=== PATIENT | female | born 1945 | race Caucasian/White ===

== ENCOUNTER → 2016-11-28 | Outpatient (CLI) | payer MEDICARE ==
[~2016-11-28] MED LIST: ALN10T PO; AMIT10TA6 PO; ARIMIDEX PO; CITA40TA19; LOSA100T16; METOPROLOL; ROSU10TA12; [UNRECOGNIZED DRUG - OTHER]
--- NOTE | 2016-11-28 17:08 | Diagnostic Imaging Report ---
Bilateral screening mammogram. The current study was also evaluated with a Computer Aided Detection (CAD) system. INDICATION: Screening. No current complaints stated on the questionnaire. COMPARISON: 11/27/2015. FINDINGS: The breasts are composed of heterogeneously dense parenchyma which may decrease mammographic sensitivity. Post therapeutic changes for previous medial right breast cancer seen with lumpectomy, scarring and surgical clip seen. A port projecting over the left axillary region is seen. Increasing calcifications in the upper-outer aspect of the right breast are seen favored to be benign. Stable calcifications in the left breast noted. IMPRESSION: Slightly increased likely benign calcifications in the upper-outer aspect of the right breast seen. Better evaluation with focal compression and magnification views recommended however. ACR BI-RADS Category 0: Incomplete. (Needs additional imaging evaluation). Result letter will be mailed to the patient. Note: At least 10% of breast cancer is not imaged by mammography. Dictated by: Dictated on workstation # [id number]
== END ==
LOC: RAD 09:18
PROVIDERS: ATTEND Internal Medicine Hematology & Oncology
DX: Z12.31 Encounter for screening mammogram for malignant neoplasm of breast (principal); R92.8 Other abnormal and inconclusive findings on diagnostic imaging of breast
CPT/HCPCS: 77067

== ENCOUNTER 2016-12-06 08:51 | Outpatient (RCR) | payer MEDICARE ==
[2016-12-06] MEDS ORDERED: ALTEPLASE 2 MG (CATHFLO) CANCER CENTER IV ONE (09:30)
[2016-12-06 10:52] LABS: BASOPHILS % (AUTO) 1 % (0-10); EOSINOPHILS # (AUTO) 0.2 10^3/uL (0.0-0.3); EOSINOPHILS % (AUTO) 2 % (0-10); LYMPHOCYTES # (AUTO) 1.4 X 10^3 (1.0-4.0); LYMPHOCYTES % (AUTO) 19 % (12-44); MEAN CORPUSCULAR HEMOGLOBIN 29 PG (25-34); MEAN CORPUSCULAR HGB CONC 33 G/DL (32-36); MEAN CORPUSCULAR VOLUME 90 FL (80-99); MONOCYTES # (AUTO) 0.7 X 10^3 (0.0-1.0); MONOCYTES % (AUTO) 9 % (0-12); NEUTROPHILS # (AUTO) 5.4 X 10^3 (1.8-7.8); NEUTROPHILS % (AUTO) 70 % (42-75); PLATELET COUNT 255 10^3/uL (130-400); RED BLOOD COUNT 4.66 10^6/uL (4.35-5.85); RED CELL DISTRIBUTION WIDTH 13.4 % (10.0-14.5); WHITE BLOOD COUNT 7.7 10^3/uL (4.3-11.0)
[2016-12-06 11:10] LABS: ALANINE AMINOTRANSFERASE 23 U/L (0-55); ALBUMIN 4.1 GM/DL (3.2-4.5); ANION GAP 13 MMOL/L (5-14); ASPARTATE AMINO TRANSFERASE 17 U/L (5-34); BILIRUBIN,TOTAL 0.5 MG/DL (0.1-1.0); BLOOD UREA NITROGEN 13 MG/DL (7-18); BUN/CREATININE RATIO 14 (0-20); CALCIUM 9.4 MG/DL (8.5-10.1); CARBON DIOXIDE 25 MMOL/L (21-32); CHLORIDE 102 MMOL/L (98-107); GFR ESTIMATED > 60; GLUCOSE 117 MG/DL (70-105); POTASSIUM 3.7 MMOL/L (3.6-5.0); SODIUM 140 MMOL/L (135-145); TOTAL PROTEIN 7.1 GM/DL (6.4-8.2)
== END 2017-03-06 | disposition home or self-care (01) ==
LOC: ONC 08:51
PROVIDERS: ATTEND Internal Medicine Hematology & Oncology
DX: Z08 Encounter for follow-up examination after completed treatment for malignant neoplasm (principal); Z85.3 Personal history of malignant neoplasm of breast; T82.9XXA Unspecified complication of cardiac and vascular prosthetic device, implant and graft, initial encounter; M81.0 Age-related osteoporosis without current pathological fracture; I12.9 Hypertensive chronic kidney disease with stage 1 through stage 4 chronic kidney disease, or unspecified chronic kidney disease; N18.3 Chronic kidney disease, stage 3 (moderate); E78.00 Pure hypercholesterolemia, unspecified; J45.909 Unspecified asthma, uncomplicated; Z92.21 Personal history of antineoplastic chemotherapy; Z92.3 Personal history of irradiation; Z79.899 Other long term (current) drug therapy
CPT/HCPCS: 36593; 80053; 85025

== ENCOUNTER → 2016-12-12 | Outpatient (CLI) | payer MEDICARE | DX: R92.8 Other abnormal and inconclusive findings on diagnostic imaging of breast (principal); C50.011 Malignant neoplasm of nipple and areola, right female breast ==

== ENCOUNTER → 2016-12-19 | Outpatient (CLI) | payer MEDICARE ==
--- NOTE | 2016-12-19 16:56 | Diagnostic Imaging Report ---
EXAMINATION: DEXA scan. INDICATION: Osteopenia. TECHNIQUE: Bone mineral density estimated based on dual energy radiography over the lumbar spine and femoral necks, was performed. FINDINGS: The lumbar spine T-score is -2.6. This is 4.6% increased density measurement compared to 11/18/13. T-score over the left femoral neck is -2 and on the right side is -1.6. IMPRESSION: Osteoporosis. Dictated by: Dictated on workstation # [id number]
== END ==
LOC: RAD 08:51
PROVIDERS: ATTEND Internal Medicine Hematology & Oncology
DX: M81.0 Age-related osteoporosis without current pathological fracture (principal)
CPT/HCPCS: 77080

== ENCOUNTER → 2017-06-18 | Outpatient (CLI) | payer MEDICARE ==
--- NOTE | 2017-06-18 14:43 | Diagnostic Imaging Report ---
EXAMINATION: Right breast diagnostic mammogram with tomography evaluation. The current study was also evaluated with a Computer Aided Detection (CAD) system. INDICATION: Followup calcifications in the upper outer aspect of the right breast. COMPARISON: 12/12/2016. FINDINGS: Heterogenous calcifications are seen in the upper outer aspect of the right breast. They appear essentially stable with no underlying solid mass identified. Surgical clips are again noted. IMPRESSION: Essentially stable minimally heterogenous group of calcifications in the upper outer aspect of the right breast, favored to be benign. Another followup when the patient is due for her bilateral mammogram in November 2017 is recommended. ACR BI-RADS Category 3: Probably benign findings. Result letter will be mailed to the patient. Note: At least 10% of breast cancer is not imaged by mammography. Dictated by: Dictated on workstation # [id number]
== END ==
LOC: RAD 12:53
PROVIDERS: ATTEND Internal Medicine Hematology & Oncology
DX: C50.011 Malignant neoplasm of nipple and areola, right female breast (principal); R92.8 Other abnormal and inconclusive findings on diagnostic imaging of breast

== ENCOUNTER → 2017-12-01 | Outpatient (CLI) | payer MEDICARE ==
--- NOTE | 2017-12-01 15:13 | Diagnostic Imaging Report ---
INDICATION: Six-month followup of right breast calcifications. COMPARISON: 11/28/2016, 06/18/2017, and 11/27/2015. TECHNIQUE: 2D and 3D bilateral diagnostic mammography was performed with CAD. FINDINGS: There are surgical clips in the inferior right breast. The calcifications in the outer upper aspect of the right breast appear to be stable. No new calcifications are seen. No mass is detected. The axillae are unremarkable. The left breast demonstrates benign calcifications. IMPRESSION: Stable bilateral mammograms. An additional 6 month followup of the right breast calcifications would be recommended. ACR BI-RADS Category 3: Probably benign findings. Result letter will be mailed to the patient. Note: At least 10% of breast cancer is not imaged by mammography. Dictated by: Dictated on workstation # [id number]
== END ==
LOC: RAD 12:25
PROVIDERS: ATTEND Nurse Practitioner Adult Health
DX: C50.011 Malignant neoplasm of nipple and areola, right female breast (principal)
CPT/HCPCS: 77066

== ENCOUNTER → 2017-12-04 | Outpatient (CLI) | payer MEDICARE | LOC: EDSTATUS 03-07 14:41 → ONC 09:25 | PROVIDERS: ATTEND Internal Medicine Hematology & Oncology | DX: Z08 Encounter for follow-up examination after completed treatment for malignant neoplasm (principal); Z85.3 Personal history of malignant neoplasm of breast; M81.0 Age-related osteoporosis without current pathological fracture; I12.9 Hypertensive chronic kidney disease with stage 1 through stage 4 chronic kidney disease, or unspecified chronic kidney disease; N18.3 Chronic kidney disease, stage 3 (moderate); E78.00 Pure hypercholesterolemia, unspecified; J45.909 Unspecified asthma, uncomplicated; Z92.21 Personal history of antineoplastic chemotherapy; Z92.3 Personal history of irradiation; Z79.899 Other long term (current) drug therapy | CPT/HCPCS: 99213 ==

== ENCOUNTER → 2018-01-08 | Outpatient (CLI) | payer MEDICARE ==
--- NOTE | 2018-01-08 16:33 | Diagnostic Imaging Report ---
INDICATION: Cough and history of reactive airway disease. PA and lateral chest obtained at 04:27 p.m. and compared to 11/01/2008. Heart and mediastinal silhouette are normal in appearance. The lungs are clear. There is no pneumothorax or pleural fluid. There is a Port-A-Cath in place over the left chest wall with catheter tip overlying the SVC. There are surgical clips over the right axilla. IMPRESSION: Postsurgical changes as above. No acute infiltrate, pneumothorax, or pleural fluid. Dictated by: Dictated on workstation # [id number]
[2018-01-10 08:10] LABS: ALTERNARIA MOLD RAST <0.35 kU/L (<0.35); RAGWEED RAST <0.35 kU/L (<0.35)
== END ==
LOC: LAB 15:46
PROVIDERS: ATTEND Nurse Practitioner Family
DX: J45.909 Unspecified asthma, uncomplicated (principal)
CPT/HCPCS: 36415; 71046; 82785; 86003

== ENCOUNTER → 2018-01-14 | Outpatient (CLI) | payer MEDICARE ==
[~2018-01-14] MED LIST changes: +RT-ALBUTEROL SULF 2.5 MG/3 ML PRE-MIX VIAL INH ONE
== END ==
LOC: RT 08:16
PROVIDERS: ATTEND Nurse Practitioner Family
DX: R06.00 Dyspnea, unspecified (principal); J45.909 Unspecified asthma, uncomplicated
CPT/HCPCS: 94060; 94726; 94729

== ENCOUNTER 2018-01-19 13:30 | Outpatient (CLI) | payer MEDICARE ==
[~2018-01-19 13:30] MED LIST changes: -RT-ALBUTEROL SULF 2.5 MG/3 ML PRE-MIX VIAL INH ONE
== END 2018-01-19 13:33 | disposition home or self-care (01) ==
LOC: SLEEP 13:30
PROVIDERS: ATTEND Nurse Practitioner Family
DX: G47.10 Hypersomnia, unspecified (principal); G47.50 Parasomnia, unspecified

== ENCOUNTER → 2018-02-24 | Outpatient (CLI) | payer MEDICARE ==
[~2018-02-24] MED LIST changes: +CETI10TA17 PO; +DULO60CA58 PO; +FAMO40TA6 PO; +HYDR12.5 PO; +HYDR5SUS PO; +MELO15TA39 PO; +MONT10TA24 PO; +ROSU10TA27 PO
[2018-02-24 12:37] LABS: BUN/CREATININE RATIO 14; CREATININE SERUM 0.84 MG/DL (0.60-1.30); GFR ESTIMATED > 60
--- NOTE | 2018-02-24 14:49 | Diagnostic Imaging Report ---
PROCEDURE: CT angiography of the chest with contrast. TECHNIQUE: Multiple contiguous axial images were obtained through the chest after uneventful bolus administration of intravenous contrast. Reconstructed CTA MIP acquisitions were also performed. INDICATION: Difficulty breathing. FINDINGS: Multiple surgical clips are identified in the right axilla. There are postsurgical changes in the right breast as well. No definite axillary lymphadenopathy is seen. No internal mammary lymphadenopathy is identified. No mediastinal or hilar lymphadenopathy is identified. The study is somewhat limited due to suboptimal opacification of the pulmonary arterial system. Central pulmonary arteries are clear without evidence of filling defects to suggest thromboemboli. More distal branches are more compromised in evaluation but no significant abnormality is seen. The thoracic aorta is normal caliber. No dissection is identified. No pericardial or pleural fluid is identified. There are some emphysematous changes in both lungs. Minimal scarring or atelectasis in the lingula and left lower lobe is identified. No parenchymal mass is detected. The upper abdomen does demonstrate hepatic steatosis. No adrenal mass is seen. IMPRESSION: Somewhat compromised study but no definite evidence of pulmonary emboli are identified. There is no mediastinal or hilar lymphadenopathy. Dictated by: Dictated on workstation # [id number]
== END ==
LOC: RAD 11:36
PROVIDERS: ATTEND Nurse Practitioner Family
DX: R06.00 Dyspnea, unspecified (principal); J98.4 Other disorders of lung
CPT/HCPCS: 36415; 71275; 82565; 84520

== ENCOUNTER 2018-02-25 05:41 | Outpatient (CLI) | payer MEDICARE ==
[~2018-02-25] VITALS: Ht 162.6 cm; Wt 70.3 kg
[~2018-02-25 05:41] MED LIST changes: -CETI10TA17 PO; -DULO60CA58 PO; -FAMO40TA6 PO; -HYDR12.5 PO; -HYDR5SUS PO; -MELO15TA39 PO; -MONT10TA24 PO; -ROSU10TA27 PO
[2018-02-25] MEDS ORDERED: MELO15TA39 PO (14:07)
[2018-02-25] MEDS ORDERED: ROSU10TA27 PO (14:07)
[2018-02-25] MEDS ORDERED: FAMO40TA6 PO (14:07)
[2018-02-25] MEDS ORDERED: MONT10TA24 PO (14:07)
[2018-02-25] MEDS ORDERED: CETI10TA17 PO (14:07)
[2018-02-25] MEDS ORDERED: HYDR5SUS PO (14:07)
[2018-02-25] MEDS ORDERED: DULO60CA58 PO (14:07)
[2018-02-25] MEDS ORDERED: HYDR12.5 PO (14:07)
== END 2018-02-25 14:08 | disposition home or self-care (01) ==
LOC: PREOP 05:41
PROVIDERS: ATTEND Internal Medicine Critical Care Medicine
DX: Z01.818 Encounter for other preprocedural examination (principal)

== ENCOUNTER 2018-02-26 07:54 | Day surgery (SDC) | payer MEDICARE ==
[~2018-02-26] VITALS: Ht 162.6 cm; Wt 70.3 kg
[~2018-02-26 07:54] MED LIST changes: +CETI10TA17 PO; +DULO60CA58 PO; +FAMO40TA6 PO; +HYDR12.5 PO; +HYDR5SUS PO; +MELO15TA39 PO; +MONT10TA24 PO; +ROSU10TA27 PO
[2018-02-26] MEDS ORDERED: LIDOCAINE JELLY 2% (XYLOCAINE) 30 ML TUBE TOP ONE (07:55)
[2018-02-26] MEDS ORDERED: LIDOCAINE PF 1% 2 ML AMP IJ ONE (07:55)
[2018-02-26] MEDS ORDERED: LIDOCAINE PF 2% 5 ML (XYLOCAINE) VIAL INJ ONE (07:55)
[2018-02-26] MEDS ORDERED: NS IV 500 ML 500 ML ONE (08:05)
--- NOTE | 2018-02-26 08:11 | Progress Note-Pre Operative ---
Pre-Operative Progress Note H&P Reviewed The H&P was reviewed, patient examined and no changes noted. Time Seen by Provider: 08:11 Date H&P Reviewed: Feb 26, 2018 Time H&P Reviewed: 08:11 Pre-Operative Diagnosis: SHANE Eugene DO Feb 26, 2018 08:11
--- NOTE | 2018-02-26 08:11 | Pre-Op Note & Conscious Sedat ---
Pre-Operative Progress Note H&P Reviewed The H&P was reviewed, patient examined and no changes noted. Date H&P Reviewed: Feb 26, 2018 Time H&P Reviewed: 08:11 Conscious Sedation Pre-Proced Time Reviewed: 08:11 ASA Class: 3 Airway Mallampati Classification: ([place] appropriate class) I. II. III, IV Lungs Heart ASA score ASA 1: a normal healthy patient ASA 2: a patient with a mild systemic disease (mid diabetes, controlled hypertension, obesity ASA 3: a patient with a severe systemic disease that limits activity (angina , COPD, prior Myocardial infarction) ASA 4: a patient with an incapacitating disease that is a constant threat to life (CHF, renal failure) ASA 5: a moribund patient not expected to survive 24 hrs. (ruptured aneurysm) ASA 6: a declared brain patient whose organs are being harvested. For emergent operations, add the letter E after the classification Grade 3 Sedation Plan: Analgesia, Amnesia, Plan communicated to team members, Discussed options with patient/fam, Discussed risks with patient/fam Note The patient is an appropriate candidate to undergo the planned procedure, sedation, and anesthesia. The patient immediately re-assessed prior to indication. SHANE ROSADO DO Feb 26, 2018 08:11
--- NOTE | 2018-02-26 08:12 | Pulmonary Procedures ---
Pulmonary Procedures Date of Procedure Date of Service: Feb 26, 2018 Bronch Bronchoscopy with LLL bronchoalveolar lavage (BAL), transbronchial washes and, brushes. Preop DX: LLL atelectasis, chronic SOB, cough. hx of breast cancer r/o endobronchial mass Postop DX: same Complications: none After informed consent obtained and formal time out pt was sedated using Fentanyl and Versed. Bronchoscope was advanced through the nare and vocal cords. 1% lidocaine was used to anesthetize vocal cords, epiglottis, pierre, and left/right main stem bronchus. An anatomical tour was undertaken down to the segmental bronchi bilaterally. No endobronchial lesions noted. From the LLL a bronchoalveolar lavage (BAL), transbronchial washes and, brushes were obtained. Pt tolerated procedure well. No complications noted. Stat CXR is pending. SHANE ROSADO DO Feb 26, 2018 08:12
[2018-02-26] MEDS ORDERED: NS IV 500 ML 500 ML IV PRN (08:13)
[2018-02-26] MEDS ORDERED: fentaNYL INJECTION 100 MCG/2 ML AMP IVP ONE (08:15)
[2018-02-26 08:36] VITALS: BP 138/74
[2018-02-26] MEDS ORDERED: fentaNYL INJECTION 100 MCG/2 ML AMP ONE (08:52)
[2018-02-26] MEDS ORDERED: MIDAZOLAM 2 MG/2 ML (VERSED) VIAL ONE ×3 (08:52)
[2018-02-26] MEDS: MIDAZOLAM 2 MG/2 ML (VERSED) VIAL IVP ONE (09:07)
--- OUTSIDE RECORDS SUMMARY | 2018-02-26 09:21 | XMS REPORT | Clinical Summary ---
Author Author [facility] Organization [facility] Address Unknown Phone Unavailable Care Team Providers Care Squeegeer And Former Name Role Phone Rosa Sam MD PCP Source Comments Some departments are not documenting in the electronic medical record. If you do not see the information that you expected, contact Release of Information in the Health Information Management department at [phone] for further assistance in locating additional records.[facility] Allergies Not on File Current Medications Not on file Active Problems Not on file Social History Tobacco Use Types Packs/Day Years Used Date Never Assessed Sex Assigned at Date Recorded Not on file Last Filed Vital Signs Not on file Plan of Treatment Health Maintenance Due Date Last Done Comments HEPATITIS C SCREENING 1945 PHYSICAL (COMPREHENSIVE) 1953 EXAM PERTUSSIS VACCINE 1957 TETANUS VACCINE 11/15/1963 BREAST CANCER SCREENING 1986 COLORECTAL CANCER 1996 SCREENING SHINGLES RECOMBINANT 1996 VACCINE (1 of 2) OSTEOPOROSIS SCREENING 11/15/2011 PNEUMONIA (PCV13/PPSV23) 11/15/2011 VACCINES (1 of 2 - PCV13) INFLUENZA VACCINE 03/23/2018 Results Not on filefrom Last 3 Months
[2018-02-26 10:15] VITALS: BP 127/57
--- NOTE | 2018-02-26 10:17 | Diagnostic Imaging Report ---
INDICATION: Status post bronchoscopy. Time of exam 10:05 AM Correlation is made with prior study from 01/08/2018. Left-sided port has tip overlying the SVC. The heart size is stable. The lungs are clear. No pneumothorax is seen status post bronchoscopy. There are surgical clips in the right axilla. There is no effusion. IMPRESSION: Stable chest. No acute features detected. Dictated by: Dictated on workstation # [id number]
[2018-02-26 10:30] VITALS: BP 134/76
[2018-02-26 10:49] VITALS: BP 134/76
--- NOTE | 2018-02-26 11:35 | Diagnostic Imaging Report ---
INDICATION: Fluoroscopy for bronchoscopy. Fluoroscopy was provided for Dr. Muir during bronchoscopy. 27 seconds of fluoroscopy was utilized. IMPRESSION: Fluoroscopy for bronchoscopy. Dictated by: Dictated on workstation # [id number]
== END 2018-02-26 10:50 | disposition home or self-care (01) ==
LOC: ENDO 07:54
PROVIDERS: ATTEND Internal Medicine Critical Care Medicine
DX: J98.11 Atelectasis (principal); J98.4 Other disorders of lung; R05 Cough; J45.909 Unspecified asthma, uncomplicated; G47.10 Hypersomnia, unspecified; K21.9 Gastro-esophageal reflux disease without esophagitis; Z85.3 Personal history of malignant neoplasm of breast; Z08 Encounter for follow-up examination after completed treatment for malignant neoplasm
CPT/HCPCS: 71045; 87070; 87101; 87116; 87205; 88112; 88305; 88312

== ENCOUNTER 2018-03-07 20:45 | Outpatient (CLI) | payer MEDICARE | END 2018-03-08 06:35 | disposition home or self-care (01) | LOC: SLEEP 20:45 | PROVIDERS: ATTEND Nurse Practitioner Family | DX: G47.10 Hypersomnia, unspecified (principal); G47.50 Parasomnia, unspecified; J30.2 Other seasonal allergic rhinitis; R09.02 Hypoxemia; R94.2 Abnormal results of pulmonary function studies | CPT/HCPCS: 95810 ==

== ENCOUNTER → 2018-06-03 | Outpatient (CLI) | payer MEDICARE ==
--- NOTE | 2018-06-03 10:01 | Diagnostic Imaging Report ---
EXAMINATION: Unilateral diagnostic right mammogram with CAD. INDICATION: Abnormal microcalcifications. COMPARISON: 12/01/2017, 06/18/2017, 11/28/2016, and 11/27/2015. PERSONAL HISTORY: At this time, there are no current complaints. FINDINGS: The previous exams have noted microcalcifications in the upper-outer aspect of the right breast. These calcifications do seem somewhat more numerous and coarser than on the initial exam of 11/28/2016; however, these calcifications still have a generally benign appearance. I would recommend that a 6 month followup diagnostic mammogram of the right breast be obtained for continued evaluation. If these calcifications appear stable at that time, then the patient could return to her routine screening schedule. The patient should have her annual screening mammogram of the left breast performed at the same time. The overall appearance of the right breast is otherwise stable. The fibroglandular tissue is heterogeneously dense and this does limit the sensitivity of the exam. The post surgical changes involving the right breast seen previously appear stable. There is no primary or secondary sign of malignancy noted. IMPRESSION: The calcifications in the upper outer aspect of the right breast appear stable and are most likely benign. Recommendations as above. ACR BI-RADS Category 3: Probably benign findings. Result letter will be mailed to the patient. Note: At least 10% of breast cancer is not imaged by mammography. Dictated by: Dictated on workstation # [id number]
== END ==
LOC: RAD 08:50
PROVIDERS: ATTEND Internal Medicine Hematology & Oncology
DX: R92.0 Mammographic microcalcification found on diagnostic imaging of breast (principal); Z85.3 Personal history of malignant neoplasm of breast

== ENCOUNTER → 2018-06-09 | Outpatient (CLI) | payer MEDICARE | LOC: ONC 08:46 | PROVIDERS: ATTEND Internal Medicine Hematology & Oncology | DX: Z08 Encounter for follow-up examination after completed treatment for malignant neoplasm (principal); Z85.3 Personal history of malignant neoplasm of breast; M81.0 Age-related osteoporosis without current pathological fracture; I12.9 Hypertensive chronic kidney disease with stage 1 through stage 4 chronic kidney disease, or unspecified chronic kidney disease; N18.3 Chronic kidney disease, stage 3 (moderate); E78.00 Pure hypercholesterolemia, unspecified; J45.909 Unspecified asthma, uncomplicated; Z92.21 Personal history of antineoplastic chemotherapy; Z92.3 Personal history of irradiation; Z79.899 Other long term (current) drug therapy | CPT/HCPCS: 99213 ==

== ENCOUNTER 2018-10-20 11:26 | Outpatient (RCR) | payer MEDICARE | END 2018-11-09 | disposition home or self-care (01) | LOC: ONC 11:26 | PROVIDERS: ATTEND Internal Medicine Hematology & Oncology | DX: Z08 Encounter for follow-up examination after completed treatment for malignant neoplasm (principal); Z85.3 Personal history of malignant neoplasm of breast; Z45.2 Encounter for adjustment and management of vascular access device | CPT/HCPCS: 96523 ==

== ENCOUNTER → 2018-12-01 | Outpatient (CLI) | payer MEDICARE ==
--- NOTE | 2018-12-01 12:36 | Diagnostic Imaging Report ---
EXAMINATION: Digital mammogram bilateral screening with 3D tomosynthesis and CAD. INDICATION: Screening. COMPARISON: This study is compared to the prior exams of 06/03/2018, 12/01/2017, 06/18/2017, 11/28/2016, and 02/28/2009. PERSONAL HISTORY: The patient has had a prior lumpectomy for carcinoma on the right in 2008. At this time, there are no current complaints. FINDINGS: The previous exams dating back to 11/28/2016 noted a group of microcalcifications in the upper-outer aspect of the right breast. Those calcifications are again evident and do not appear to have changed significantly. Given the stability of this group of calcifications over a greater than two-year period, I do suspect that they are benign. The overall appearance of the breasts has not changed significantly otherwise. The fibroglandular tissue in each breast is heterogeneously dense. This does limit the sensitivity of this exam. The post surgical changes involving the right breast seen previously appear stable. There is no primary or secondary sign of malignancy noted. IMPRESSION: 1. There is no evidence for malignancy. 2. The patient should have her annual mammogram on schedule in November 2019. ACR BI-RADS Category 1: Negative. Result letter will be mailed to the patient. Note: At least 10% of breast cancer is not imaged by mammography. Dictated by: Dictated on workstation # [id number]
--- NOTE | 2018-12-01 12:50 | Diagnostic Imaging Report ---
INDICATION: Postmenopausal female. COMPARISON: 12/19/2016 FINDINGS: AP Spine L1-L4: [BMD (g/cm2): 0.924] [T-Score: -2.3] [Z-Score: -0.9] [BMD Previous: 0.890] [BMD % Change: 3.8] LT Hip Neck: [BMD (g/cm2): 0.691] [T-Score: -2.5] [Z-Score: -0.9] LT Hip Total: [BMD (g/cm2):0.786] [T-Score:-1.8] [Z-Score: -0.4] [BMD Previous: 0.760] [BMD % Change: 3.4] RT Hip Neck: [BMD (g/cm2):0.734] [T-Score:-2.2] [Z-Score:-0.6] RT Hip Total: [BMD (g/cm2):0.805] [T-score:-1.6] [Z-Score:-0.3] [BMD Previous:0.803] [BMD % Change:.2] *Indicates significant change from prior examination based on 95% confidence level. World Health Organization criteria for BMD interpretation classify patients as Normal (T-score at or above -1.0), Osteopenic (T-score between -1.0 and -2.5) or Osteoporotic (T-score at or below -2.5). LIMITATIONS AND MODIFICATION: None. FRACTURE RISK (FRAX SCORE): Osteoporosis. IMPRESSION: 1. Osteoporosis. 2. No statistically significant change in bone mineral density since prior examination. 3. See below National Osteoporosis Foundation guidelines on when to potentially initiate pharmacologic therapy. Based on the National Osteoporosis Foundation Guidelines, pharmacologic treatment should be initiated in any of the following, unless clinical conditions suggest otherwise: * Any patient with prior fragility fracture of the hip or vertebrae. A spine fracture indicates 5X risk for subsequent spine fracture and 2X risk for subsequent hip fracture. * Osteoporosis (T-score <-2.5). * Postmenopausal women and men age 50 and older with low bone mass/osteopenia (T-score between -1.0 and -2.5) by DXA and 10-year major osteoporotic fracture greater than 20% or a 10-year probability of hip fracture greater than 3%. These fracture risks are supplied above in the FRAX score, if applicable. * Clinician judgement and/or patient preferences may indicate treatment for people with 10-year fracture probabilities above or below these levels. Dictated by: Dictated on workstation # [id number]
== END ==
LOC: RAD 10:57
PROVIDERS: ATTEND Nurse Practitioner Adult Health
DX: C50.911 Malignant neoplasm of unspecified site of right female breast (principal); M81.0 Age-related osteoporosis without current pathological fracture; N18.3 Chronic kidney disease, stage 3 (moderate); Z98.890 Other specified postprocedural states; Z98.0 Intestinal bypass and anastomosis status
CPT/HCPCS: 77066; 77080

== ENCOUNTER 2018-12-07 10:09 | Outpatient (RCR) | payer MEDICARE ==
[~2018-12-07 10:09] MED LIST changes: -DULO60CA58 PO; +DULO60CA59 PO; -ROSU10TA27 PO; +ROSU10TA28 PO
[2018-12-07 10:33] LABS: BASOPHILS % (AUTO) 0 % (0-10); EOSINOPHILS # (AUTO) 0.1 10^3/uL (0.0-0.3); EOSINOPHILS % (AUTO) 2 % (0-10); HEMATOCRIT 40 % (35-52); HEMOGLOBIN 13.3 G/DL (11.5-16.0); LYMPHOCYTES # (AUTO) 1.2 X 10^3 (1.0-4.0); LYMPHOCYTES % (AUTO) 24 % (12-44); MEAN CORPUSCULAR HEMOGLOBIN 30 PG (25-34); MEAN CORPUSCULAR HGB CONC 33 G/DL (32-36); MEAN CORPUSCULAR VOLUME 90 FL (80-99); MEAN PLATELET VOLUME 12.1 FL (7.4-10.4); MONOCYTES # (AUTO) 0.4 X 10^3 (0.0-1.0); MONOCYTES % (AUTO) 8 % (0-12); NEUTROPHILS # (AUTO) 3.2 X 10^3 (1.8-7.8); NEUTROPHILS % (AUTO) 66 % (42-75); PLATELET COUNT 243 10^3/uL (130-400); RED CELL DISTRIBUTION WIDTH 13.4 % (10.0-14.5); WHITE BLOOD COUNT 4.8 10^3/uL (4.3-11.0)
[2018-12-07 10:51] LABS: ALANINE AMINOTRANSFERASE 16 U/L (0-55); ALKALINE PHOSPHATASE 90 U/L (40-136); BILIRUBIN,TOTAL 0.6 MG/DL (0.1-1.0); BUN/CREATININE RATIO 13; CALCIUM 8.6 MG/DL (8.5-10.1); CARBON DIOXIDE 22 MMOL/L (21-32); CHLORIDE 108 MMOL/L (98-107); CREATININE SERUM 0.89 MG/DL (0.60-1.30); GFR ESTIMATED > 60; GLUCOSE 126 MG/DL (70-105); POTASSIUM 3.7 MMOL/L (3.6-5.0); SODIUM 140 MMOL/L (135-145)
[2019-01-06] MEDS ORDERED: ALEN70TA2 PO (10:44)
[2019-01-06] MEDS ORDERED: RT-ALBUINH IH (10:44)
[2019-01-08] MEDS ORDERED: ACHD5005 PO (11:10)
== END 2019-02-08 | disposition home or self-care (01) ==
LOC: ONC 10:09
PROVIDERS: ATTEND Internal Medicine Hematology & Oncology
DX: Z08 Encounter for follow-up examination after completed treatment for malignant neoplasm (principal); Z85.3 Personal history of malignant neoplasm of breast; M81.0 Age-related osteoporosis without current pathological fracture; I12.9 Hypertensive chronic kidney disease with stage 1 through stage 4 chronic kidney disease, or unspecified chronic kidney disease; N18.3 Chronic kidney disease, stage 3 (moderate); E78.00 Pure hypercholesterolemia, unspecified; J45.909 Unspecified asthma, uncomplicated; Z92.21 Personal history of antineoplastic chemotherapy; Z92.3 Personal history of irradiation; Z79.899 Other long term (current) drug therapy; Z45.2 Encounter for adjustment and management of vascular access device
CPT/HCPCS: 36591; 80053; 85025; 96523

== ENCOUNTER 2019-01-06 10:40 | Outpatient (CLI) | payer MEDICARE ==
[~2019-01-06] VITALS: Ht 162.6 cm; Wt 70.3 kg
[~2019-01-06 10:40] MED LIST changes: +DULO60CA58 PO; -DULO60CA59 PO; +ROSU10TA27 PO; -ROSU10TA28 PO
[2019-01-06] MEDS ORDERED: RT-ALBUINH IH (10:44)
[2019-01-06] MEDS ORDERED: ALEN70TA2 PO (10:44)
== END 2019-01-06 10:55 | disposition home or self-care (01) ==
LOC: PREOP 10:40
PROVIDERS: ATTEND Surgery
DX: Z01.818 Encounter for other preprocedural examination (principal)

== ENCOUNTER 2019-01-08 07:09 | Day surgery (SDC) | payer MEDICARE ==
[~2019-01-08] VITALS: Ht 162.6 cm; Wt 74.8 kg
[2019-01-08] VITALS (9 sets, daily range): BP systolic 133–152; BP diastolic 57–71
[~2019-01-08 07:09] MED LIST changes: +ALEN70TA2 PO; +RT-ALBUINH IH
[2019-01-08] MEDS ORDERED: FAMOTIDINE 20MG/2ML IV (PEPCID) ONE (07:49)
[2019-01-08] MEDS ORDERED: ONDANSETRON 4 MG/2 ML (SDV) Z0FRAN ONE (07:49)
[2019-01-08] MEDS ORDERED: LACTATED RINGERS 1,000 ML IV PRN (07:53)
[2019-01-08] MEDS ORDERED: FAMOTIDINE 20MG/2ML IV (PEPCID) IVP ONE (08:00)
[2019-01-08] MEDS ORDERED: ONDANSETRON 4 MG/2 ML (SDV) Z0FRAN IVP ONE (08:00)
[2019-01-08] MEDS ORDERED: ceFAZolin 2 GM/50 ML NS 50 ML IV ONE (08:00)
[2019-01-08] MEDS ORDERED: BUP/EPI 0.5% 1:200,000 (MARCAINE) 10ML VIAL IJ ONE (08:03)
--- NOTE | 2019-01-08 08:21 | Progress Note-Pre Operative ---
Pre-Operative Progress Note H&P Reviewed The H&P was reviewed, patient examined and no changes noted. Time Seen by Provider: 08:14 Date H&P Reviewed: Jan 08, 2019 Time H&P Reviewed: 08:15 Pre-Operative Diagnosis: venous insufficiency, yosef-cath removal TERRY PÉREZ DO Jan 08, 2019 08:21
[2019-01-08] MEDS ORDERED: LIDOCAINE PF 2% 5 ML (XYLOCAINE) VIAL ONE (08:51)
[2019-01-08] MEDS ORDERED: proPOfol 200 MG/20 ML (DIPRIVAN) VIAL IV ONE (08:51)
[2019-01-08] MEDS ORDERED: MIDAZOLAM 2 MG/2 ML (VERSED) VIAL ONE (08:52)
--- NOTE | 2019-01-08 09:26 | Progress Note-Post Operative ---
Post-Operative Progess Note Surgeon (s)/Piston Maker (s) Surgeon TERRY PÉREZ DO Piston Maker: none Pre-Operative Diagnosis venous insufficiency, yosef-cath removal Post-Operative Diagnosis same Procedure & Operative Findings Date of Procedure 01/08/19 Procedure Performed/Findings Yosef-cath removal Anesthesia Type IV sedation by CERTIFIED TECHNICIAN Estimated Blood Loss Estimated blood loss (mL): Scant Specimens/Packing Specimens Removed yosef-cath TERRY PÉREZ DO Jan 08, 2019 09:26
--- NOTE | 2019-01-08 09:29 | Discharge Inst-Surgical ---
Discharge Inst-Surgical Depart Medication/Instructions New, Converted or Re-Newed RX: Other (no rx, pt has pain meds at home) Patient Instructions Follow up Appt: Make appointment for 1 week. [phone] Instructions: No strenuous activity. May shower in 24 hours, no tub bath or soaking. Use incentive spirometer at home as directed. No Smoking Skin/Wound Care: May remove bandages in am. You need to leave the Dermabond on incision it will fall off on it's own. Symptoms to Report: Appetite Changes, Extremity Discoloration, Numbness/Tingling, Swelling Increased, Bleeding Excessive, Eyesight Changes, Pain Increased, Urine Color Change, Constipation(Persistent), Fever over 101 degree F, Pain/Pressure in chest, Urinating Difficulty, Cough Up/Vomit Blood, Heart Beat Irreg/Pounding, Pain/Pressure in jaw, Cramps in feet or legs, Lightheadedness, Pain/Pressure in shoulder, Diarrhea(Persistent), Memory Changes Suddenly, Questions/Concerns, Weight gain consecutive days, Dizziness/Fainting, Nausea/Vomiting, Shortness of Breath, Weight gain over 2 pounds If questions or concerns contact your physician Or seek help at emergency department. Activity Activity as Tolerated: Yes Driving Instructions: No Driving for 1 Week Diet Discharge Diet: No Restrictions Diet After 24 Hours: Clear Liquid if Nauseous If Any Problems/Questions/Issu: Contact Your Physician, Go to Emergency Room Skin/Wound Care Infection Signs and Symptoms: Increased Redness, Foul Odor of Wound, Increased Drainage, Skin Itchy or Has a Rash, Increased Swelling, Temperature Above 101 F Bathing Instructions: Shower Stitches/Kurt/Dermabond Dis: TERRY Dick DO Jan 08, 2019 09:29
--- NOTE | 2019-01-08 10:28 | Anesthesia-General Post-Op ---
MAC Patient Condition Mental Status/LOC: Same as Preop Cardiovascular: Satisfactory Nausea/Vomiting: Absent Respiratory: Satisfactory Pain: Controlled Complications: Absent Post Op Complications Complications None Follow Up Care/Instructions Patient Instructions None needed. Anesthesiology Discharge Order Discharge Order Patient is doing well, no complaints, stable vital signs, no apparent adverse anesthesia problems. No complications reported per nursing. GIANA ALAS CRNA Jan 08, 2019 10:28
[2019-01-08] MEDS ORDERED: ACHD5005 PO (11:10)
--- NOTE | 2019-01-08 15:24 | OPERATIVE REPORT ---
DATE OF SERVICE: 01/08/2019 PREOPERATIVE DIAGNOSIS: Venous insufficiency, Port-A-Cath. POSTOPERATIVE DIAGNOSIS: Venous insufficiency, Port-A-Cath. PROCEDURE: Port-A-Cath removal. SURGEON: Tc Olivares DO. ESTIMATOR: None. ANESTHESIA: IV sedation by COLOR PASTE MIXER. SPECIMEN: Port-A-Cath, but not sent to pathology. BLOOD LOSS: Scant. FLUIDS: Per anesthesia. POSTOPERATIVE CONDITION: Stable. INDICATION FOR PROCEDURE: The patient is a 74-year-old female, who has had a Port-A-Cath placed about 10 years ago for cancer. She no longer needs it and would like it removed. FINDINGS: The patient had a Port-A-Cath removed without any difficulty from the left anterior chest wall. PROCEDURE NOTE: After informed consent was obtained, the patient was brought to the operating room, placed on table in the supine position. She was sterilely prepped and draped in normal fashion. Local lidocaine was used to infiltrate the skin at the spot of previous insertion site then a previous incision and then over the port to create a regional block. I then made an incision with #15 blade, carried down through the skin into subcutaneous tissue, deepened down to subcutaneous tissue with Bovie electrocautery down to the port, able to visualize the port and the catheter able to then grasp these and then carefully and gently pulled the catheter, pulled the catheter out, removed it completely and then able to bluntly dissect around the port with my finger and remove it from the capsular created and then pulled this out and passed off table then cut out portion of the capsule with Bovie electrocautery, irrigated the incision and then hemostasis obtained using Bovie electrocautery and elected to close the incision, closing the subcutaneous tissue with 3-0 Vicryl 1 interrupted suture then closed the skin with 4-0 undyed Monocryl 3 interrupted subcuticular stitches. Area was cleaned and dried and Dermabond placed. The patient then transferred to recovery room in stable condition. Sponge, instrument and needle count correct at the end of the case. Job ID: [id number] DocumentID: [id number] Dictated Date: 01/08/2019 09:25:34 Blog Writer Date: 01/08/2019 15:23:51 Dictated By: TC OLIVARES DO [facility]
== END 2019-01-08 11:17 | disposition home or self-care (01) ==
LOC: SDC 07:09
PROVIDERS: ATTEND Surgery
DX: I87.2 Venous insufficiency (chronic) (peripheral) (principal); Z85.3 Personal history of malignant neoplasm of breast; I12.9 Hypertensive chronic kidney disease with stage 1 through stage 4 chronic kidney disease, or unspecified chronic kidney disease; N18.3 Chronic kidney disease, stage 3 (moderate); E78.00 Pure hypercholesterolemia, unspecified; E78.5 Hyperlipidemia, unspecified; G47.10 Hypersomnia, unspecified; R09.02 Hypoxemia; M81.0 Age-related osteoporosis without current pathological fracture; M19.91 Primary osteoarthritis, unspecified site; G47.50 Parasomnia, unspecified; J44.9 Chronic obstructive pulmonary disease, unspecified; G62.9 Polyneuropathy, unspecified; M06.9 Rheumatoid arthritis, unspecified; M79.7 Fibromyalgia; F41.9 Anxiety disorder, unspecified; K21.9 Gastro-esophageal reflux disease without esophagitis; R05 Cough; Z11.2 Encounter for screening for other bacterial diseases; Z88.5 Allergy status to narcotic agent; Z79.899 Other long term (current) drug therapy; Z90.11 Acquired absence of right breast and nipple
CPT/HCPCS: 87081

== ENCOUNTER → 2019-03-26 | Outpatient (CLI) | payer MEDICARE ==
[~2019-03-26] MED LIST changes: +ACHD5005 PO; -DULO60CA58 PO; +DULO60CA59 PO; -ROSU10TA27 PO; +ROSU10TA28 PO
--- NOTE | 2019-03-26 12:33 | Diagnostic Imaging Report ---
PATIENT HISTORY: RIGHT HIP PAIN. Fall one month ago. TECHNIQUE: 2 views of the right hip COMPARISON: None FINDINGS: No acute fracture or dislocation is seen in the right hip. Alignment is normal. Joint spaces are well preserved, particularly for age. There are degenerative changes in the lower lumbar spine. IMPRESSION: No acute osseous abnormality is seen in the right hip. Dictated by: Dictated on workstation # [id number]
== END ==
LOC: RAD FS 12:02
PROVIDERS: ATTEND Nurse Practitioner Family
DX: M25.551 Pain in right hip (principal)
CPT/HCPCS: 73502

== ENCOUNTER → 2019-04-15 | Outpatient (CLI) | payer MEDICARE ==
--- NOTE | 2019-04-15 10:46 | Diagnostic Imaging Report ---
PROCEDURE: MRI right joint lower extremity without contrast. TECHNIQUE: Multiplanar, multisequence non contrast-enhanced MRI of the right lower extremity was accomplished. INDICATION: Right hip pain. COMPARISON: There are no previous MRI examinations available for comparison. The plain film examination of the right hip performed on 03/26/2019 failed to show any sign of an acute abnormality. On the coronal STIR series of this exam there is no abnormal signal arising from the right hip to suggest bone edema or a fracture. There is no sign of avascular necrosis of either. However there is a small joint effusion present. The labrum of the right hip seems to be intact for the most part. There is no sign of a joint effusion involving the left hip. Both hip joints and both sacroiliac joints show only mild degenerative disease. There is no pelvic mass or free fluid collection evident. The uterus is surgically absent. IMPRESSION: 1. There is no evidence for an acute bony abnormality of the pelvis. In particular there is no sign of an occult fracture of the right hip. There is no sign of avascular necrosis either. 2. There is a small joint effusion on the right. 3. There is only mild degenerative disease involving the hip and sacroiliac joints. Dictated by: Dictated on workstation # [id number]
== END ==
LOC: RAD 08:23
PROVIDERS: ATTEND Nurse Practitioner
DX: M25.451 Effusion, right hip (principal); M16.0 Bilateral primary osteoarthritis of hip; M47.818 Spondylosis without myelopathy or radiculopathy, sacral and sacrococcygeal region; Z91.81 History of falling
CPT/HCPCS: 73721

== ENCOUNTER → 2019-11-29 | Outpatient (CLI) | payer MEDICARE ==
[~2019-11-29] MED LIST changes: -MONT10TA24 PO; +MONT10TA26 PO
--- NOTE | 2019-11-29 14:52 | Diagnostic Imaging Report ---
INDICATION: Routine screening. COMPARISON: 12/01/2018 and 12/01/2017. TECHNIQUE: 2D and 3D bilateral screening mammography was performed with CAD. FINDINGS: Both breasts are heterogeneously dense, limiting the sensitivity of mammography. Multiple surgical clips in the medial right breast are noted. There are benign calcifications bilaterally. A nodular density in the outer right breast at anterior to mid depth appears stable. The axillae are unremarkable. No spiculated mass is seen. IMPRESSION: No mammographic features suspicious for malignancy are identified. ACR BI-RADS Category 2: Benign findings. Result letter will be mailed to the patient. Note: At least 10% of breast cancer is not imaged by mammography. Dictated by: Dictated on workstation # [id number]
== END ==
LOC: RAD 10:19
PROVIDERS: ATTEND Internal Medicine Hematology & Oncology
DX: Z12.31 Encounter for screening mammogram for malignant neoplasm of breast (principal)
CPT/HCPCS: 77063; 77067

== ENCOUNTER → 2019-12-27 | Outpatient (CLI) | payer MEDICARE ==
[2019-12-27 14:14] LABS: BASOPHILS % (AUTO) 0 % (0-10); EOSINOPHILS # (AUTO) 0.2 10^3/uL (0.0-0.3); EOSINOPHILS % (AUTO) 3 % (0-10); HEMATOCRIT 37 % (35-52); HEMOGLOBIN 11.5 G/DL (11.5-16.0); LYMPHOCYTES % (AUTO) 26 % (12-44); MEAN CORPUSCULAR HEMOGLOBIN 28 PG (25-34); MEAN CORPUSCULAR HGB CONC 31 G/DL (32-36); MEAN CORPUSCULAR VOLUME 90 FL (80-99); MEAN PLATELET VOLUME 11.5 FL (7.4-10.4); MONOCYTES # (AUTO) 0.9 X 10^3 (0.0-1.0); MONOCYTES % (AUTO) 12 % (0-12); NEUTROPHILS # (AUTO) 4.4 X 10^3 (1.8-7.8); NEUTROPHILS % (AUTO) 59 % (42-75); PLATELET COUNT 391 10^3/uL (130-400); RED CELL DISTRIBUTION WIDTH 14.2 % (10.0-14.5); WHITE BLOOD COUNT 7.4 10^3/uL (4.3-11.0)
[2019-12-27 14:33] LABS: ALANINE AMINOTRANSFERASE 13 U/L (0-55); ALBUMIN 4.2 GM/DL (3.2-4.5); ALKALINE PHOSPHATASE 129 U/L (40-136); BILIRUBIN,TOTAL 0.5 MG/DL (0.1-1.0); BUN/CREATININE RATIO 11; CALCIUM 9.3 MG/DL (8.5-10.1); CARBON DIOXIDE 23 MMOL/L (21-32); CHLORIDE 102 MMOL/L (98-107); CREATININE SERUM 0.83 MG/DL (0.60-1.30); GFR ESTIMATED > 60; GLUCOSE 130 MG/DL (70-105); POTASSIUM 3.5 MMOL/L (3.6-5.0); SODIUM 137 MMOL/L (135-145); TOTAL PROTEIN 7.2 GM/DL (6.4-8.2)
== END ==
LOC: ONC 13:55
PROVIDERS: ATTEND Internal Medicine Hematology & Oncology
DX: E55.9 Vitamin D deficiency, unspecified (principal)
CPT/HCPCS: 80053; 82306; 85025; G0463

== ENCOUNTER → 2020-05-11 | Outpatient (CLI) | payer MEDICARE ==
--- NOTE | 2020-05-11 13:23 | Diagnostic Imaging Report ---
Indication: Right hip pain 2 views of the right hip show postoperative changes from total hip arthroplasty. Prosthesis is in good position. Alignment is normal. There is no evidence of loosening or acute fracture. IMPRESSION: Good alignment of right hip following joint arthroplasty. Dictated by: Dictated on workstation # [id number]
== END ==
LOC: RAD FS 12:10
PROVIDERS: ATTEND Nurse Practitioner Family
DX: M25.551 Pain in right hip (principal); Z96.641 Presence of right artificial hip joint
CPT/HCPCS: 73502

== ENCOUNTER → 2020-12-05 | Outpatient (CLI) | payer MEDICARE ==
[~2020-12-05] MED LIST changes: -MONT10TA26 PO; +MONT10TA32 PO
--- NOTE | 2020-12-05 12:16 | Diagnostic Imaging Report ---
INDICATION: Postmenopausal state. COMPARISON: 12/01/2018 FINDINGS: AP Spine L1-L4: [BMD (g/cm2): 0.878] [T-Score: -2.7] [Z-Score: -1.3] [BMD Previous: 0.924] [BMD % Change: -5.0] LT Hip Neck: [BMD (g/cm2): 0.685] [T-Score: -2.5] [Z-Score: -0.9] LT Hip Total: [BMD (g/cm2):0.746] [T-Score:-2.1] [Z-Score: -0.6] [BMD Previous: 0.786] [BMD % Change: -5.1] RT Hip Neck: [BMD (g/cm2):NA] [T-Score:NA] [Z-Score:NA] RT Hip Total: [BMD (g/cm2):NA] [T-score:NA] [Z-Score:NA] [BMD Previous:NA] [BMD % Change:NA] *Indicates significant change from prior examination based on 95% confidence level. World Health Organization criteria for BMD interpretation classify patients as Normal (T-score at or above -1.0), Osteopenic (T-score between -1.0 and -2.5) or Osteoporotic (T-score at or below -2.5). LIMITATIONS AND MODIFICATION: The right hip was not evaluated secondary to postsurgical changes. FRACTURE RISK (FRAX SCORE): The ten year probability of (%): Major Osteoporotic Fracture: [24.3] Hip Fracture: [7.2] IMPRESSION: 1. Osteoporosis. 2. No significant change in bone mineral density since prior examination. 3. See below National Osteoporosis Foundation guidelines on when to potentially initiate pharmacologic therapy. Based on the National Osteoporosis Foundation Guidelines, pharmacologic treatment should be initiated in any of the following, unless clinical conditions suggest otherwise: * Any patient with prior fragility fracture of the hip or vertebrae. A spine fracture indicates 5X risk for subsequent spine fracture and 2X risk for subsequent hip fracture. * Osteoporosis (T-score <-2.5). * Postmenopausal women and men age 50 and older with low bone mass/osteopenia (T-score between -1.0 and -2.5) by DXA and 10-year major osteoporotic fracture greater than 20% or a 10-year probability of hip fracture greater than 3%. These fracture risks are supplied above in the FRAX score, if applicable. * Clinician judgement and/or patient preferences may indicate treatment for people with 10-year fracture probabilities above or below these levels. Dictated by: Dictated on workstation # [id number]
--- NOTE | 2020-12-05 13:16 | Diagnostic Imaging Report ---
INDICATION: Routine screening. COMPARISON: 11/29/2019 and 12/01/2018. TECHNIQUE: 2D and 3D bilateral screening mammography was performed with CAD. FINDINGS: Both breasts remain heterogeneously dense, limiting the sensitivity of mammography. A nodular density in the outer right breast at mid depth appears stable. There are surgical clips in the medial right breast. There are numerous benign-appearing calcifications in both breasts which appear stable. No spiculated mass or malignant appearing microcalcifications are seen. The axillae are unremarkable. IMPRESSION: No mammographic features suspicious for malignancy are identified. ACR BI-RADS Category 2: Benign findings. Result letter will be mailed to the patient. Note: At least 10% of breast cancer is not imaged by mammography. Dictated by: Dictated on workstation # [id number]
== END ==
LOC: RAD 10:29
PROVIDERS: ATTEND Nurse Practitioner Adult Health
DX: Z12.31 Encounter for screening mammogram for malignant neoplasm of breast (principal); C50.511 Malignant neoplasm of lower-outer quadrant of right female breast; M81.0 Age-related osteoporosis without current pathological fracture; N18.30 Chronic kidney disease, stage 3 unspecified; Z78.0 Asymptomatic menopausal state
CPT/HCPCS: 77063; 77067; 77080

== ENCOUNTER 2020-12-28 10:47 | Outpatient (RCR) | payer MEDICARE ==
[2020-12-27 11:03] LABS: BASOPHILS # (AUTO) 0.1 10^3/uL (0.0-0.1); BASOPHILS % (AUTO) 0 % (0-10); EOSINOPHILS # (AUTO) 0.1 10^3/uL (0.0-0.3); EOSINOPHILS % (AUTO) 1 % (0-10); HEMATOCRIT 46 % (35-52); HEMOGLOBIN 15.1 g/dL (11.5-16.0); LYMPHOCYTES # (AUTO) 1.9 10^3/uL (1.0-4.0); LYMPHOCYTES % (AUTO) 15 % (12-44); MEAN CORPUSCULAR HEMOGLOBIN 31 pg (25-34); MEAN CORPUSCULAR HGB CONC 33 g/dL (32-36); MEAN CORPUSCULAR VOLUME 94 fL (80-99); MEAN PLATELET VOLUME 11.2 fL (9.0-12.2); MONOCYTES # (AUTO) 0.9 10^3/uL (0.0-1.0); MONOCYTES % (AUTO) 7 % (0-12); NEUTROPHILS # (AUTO) 9.1 10^3/uL (1.8-7.8); NEUTROPHILS % (AUTO) 74 % (42-75); PLATELET COUNT 336 10^3/uL (130-400); WHITE BLOOD COUNT 12.3 10^3/uL (4.3-11.0)
[2020-12-27 11:29] LABS: BILIRUBIN,TOTAL 0.7 MG/DL (0.1-1.0); CALCIUM 9.2 MG/DL (8.5-10.1); CREATININE SERUM 0.96 MG/DL (0.60-1.30); POTASSIUM 4.2 MMOL/L (3.6-5.0); TOTAL PROTEIN 6.4 GM/DL (6.4-8.2)
[~2020-12-28 10:47] MED LIST changes: +ZOLEDRONATE (NON-FORMULARY) 100 ML IV ONE
== END 2021-03-27 | disposition home or self-care (01) ==
LOC: ONC 10:47
PROVIDERS: ATTEND Internal Medicine Hematology & Oncology
DX: C50.911 Malignant neoplasm of unspecified site of right female breast (principal); M81.0 Age-related osteoporosis without current pathological fracture; E78.00 Pure hypercholesterolemia, unspecified; I10 Essential (primary) hypertension; Z90.11 Acquired absence of right breast and nipple; Z92.21 Personal history of antineoplastic chemotherapy; Z92.3 Personal history of irradiation; Z79.890 Hormone replacement therapy
CPT/HCPCS: 80053; 85025; G0463; 96374; 99213

== ENCOUNTER 2021-01-31 10:12 | Outpatient (CLI) | payer MEDICARE ==
[~2021-01-31] VITALS: Ht 160 cm; Wt 74.4 kg
[2021-01-31 10:10] VITALS: BP 132/86
[~2021-01-31 10:12] MED LIST changes: -ZOLEDRONATE (NON-FORMULARY) 100 ML IV ONE
[2021-01-31] MEDS ORDERED: EPINEPHrine INJECTION 1 MG/ML AMP IM PRN (10:30)
[2021-01-31] MEDS ORDERED: CASIRIVIMAB/IMDEVIMAB 1,200 MG in NS (IVPB) 250 ML IV ONE (10:30)
[2021-01-31] MEDS ORDERED: diphenhydrAMINE 50 MG/ML INJ (BENADRYL) IV PRN (10:30)
[2021-01-31 11:53] VITALS: BP 115/54
== END 2021-01-31 12:43 | disposition home or self-care (01) ==
LOC: INFUSION 10:12
PROVIDERS: ATTEND Nurse Practitioner Family
DX: Z23 Encounter for immunization (principal); U07.1 COVID-19

== ENCOUNTER → 2021-05-16 | Outpatient (CLI) | payer MEDICARE ==
[~2021-05-16] MED LIST changes: +MONT-40 PO; -MONT10TA32 PO
--- NOTE | 2021-05-16 13:10 | Diagnostic Imaging Report ---
INDICATION: Chronic neck and back pain. COMPARISON: None FINDINGS: Frontal, lateral, and odontoid views of the cervical spine were submitted. The cervical spine is visualized up to the C7/T1 level on the lateral projection. There is normal vertebral height and alignment. There is no evidence of fracture or bone destruction. No prevertebral soft tissue swelling is seen. No significant degenerative changes are noted. The open-mouth view demonstrates normal C1/C2 alignment. IMPRESSION: 1. Normal cervical spine series. Dictated by: Dictated on workstation # [id number]
--- NOTE | 2021-05-16 13:12 | Diagnostic Imaging Report ---
INDICATION: Chronic back pain. COMPARISON: None FINDINGS: Frontal and lateral views of the lumbar spine were obtained. Alignment and vertebral heights are maintained. There is no fracture or destructive process. 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 Limited views of the abdomen demonstrate nonobstructive bowel gas pattern. Moderate calcified aortic atherosclerosis is noted. IMPRESSION: 1. No acute fracture or dislocation of the lumbar spine. Dictated by: Dictated on workstation # [id number]
--- NOTE | 2021-05-16 13:14 | Diagnostic Imaging Report ---
INDICATION: Chronic back pain. COMPARISON: None. FINDINGS: Frontal and lateral views of the thoracic spine were obtained. Visualization of the upper thoracic spine is limited on the lateral projection. Alignment and vertebral heights are maintained. There is no fracture or destructive process. There are no large paraspinal masses. Mild multilevel degenerative disease is noted in the thoracic spine and consist primarily of intervertebral disc height loss. Limited views of the lungs are clear. IMPRESSION: No acute fracture or dislocation of the thoracic spine. Dictated by: Dictated on workstation # [id number]
== END ==
LOC: RAD FS 12:14
PROVIDERS: ATTEND Nurse Practitioner Family
DX: M51.36 Other intervertebral disc degeneration, lumbar region (principal); M54.6 Pain in thoracic spine; M54.2 Cervicalgia
CPT/HCPCS: 72040; 72070; 72100